=== PATIENT | female | born 1965 | race Caucasian/White ===

== ENCOUNTER 2018-07-02 15:00 | Outpatient (RCR) | payer BC, SELFPAY ==
--- NOTE | 2018-07-02 13:08 | IE_ITS ---
Date: July 02, 2018 Referring: Oliva Figueroa NP [place] Diagnosis: left knee medial compartmental OA SUBJECTIVE: History of Present Illness: The patient reports injuring her knee earlier this summer while camping. She was lifting 4 bags of groceries, attempting to step down one step, pivoted and felt a pop in the knee. This resulted in severe, anterior knee pain. Ended up at the Orthopedic clinic receiving a Synvisc injection. This did offer 75% reduction in pain. She admits she is aware of having degenerative OA, and is likely a candidate for a TKR. 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 She did have a right TKR in February 2017. She is referred today for an evaluation and consideration of accommodative orthotics incorporating a medial compartmental unloading component. The patient admits that the pain increases with standing and/or pivoting. Also, has pain and stiffness when transferring sit to stand after sitting for more than 30 minutes. She has discomfort with the first few steps taken. She does sleep through the night fairly well. Pain Rating: At time of I.E. 2 /10 and at its worst 6/10 (in the past wk.) Current Level of Function: Difficulty performing heavy activities at home, walking a mile and is not able to squat. Social: Lives in a multi level home with her and her high school aged child. She teaches at [employer]. Comorbidities: Cervical spine discectomy 19 yrs ago, gastric bypass 7 yrs ago , thyroidectomy secondary to CA 6 yrs ago, (-) diabetes, (-) HBP Falls in the last year: __x__ No ___Yes - How many? ___ - (if over 2, balance SM needs to be completed) Standardized Measures: LEFS score: __43%__ OBJECTIVE: Posture: The patient is a morbidly obese female with genu valgus left knee. Significant pronation noted bilaterally, right worse than left. 10 to 12 of rearfoot eversion right; 8 left. She does report a history of plantar fascitis of both feet (past 3 to 4 yrs). This was corrected with use of orthotics with arch support. Gait: Non antalgic. Palpation: Pain elicited with palpation over the medial border of the left knee and medial knee joint line on the left. Painfree over the popliteal fossa and lateral knee joint line. ROM: 110 A right; 115 AA. 115 A left with retro patella discomfort. Extension 0 right; 5 hyper extension left. Hip ROM is WFL. Strength: Hip flexion 5/5 bilaterally, hip extension 4/5 bilaterally, hip abduction 4/5 bilaterally, quadriceps 4+/5 bilaterally and she performs a SLR with a 0 lag. Hamstrings 4/5 bilaterally. She is able to heel and toe walk. Joint accessory motion: Mildly decreased patella mobility through all planes on the left. Special Tests: (+) bounce home. (+) thessaly. (-) Apley grind. (-) anterior drawer. (-) posterior sag sign. Treatment: IE: [id number] x1 Patient Education: Fabrication of accommodative orthotics incorporating lateral rearfoot posting on the left to off load the medial compartment. Did incorporate scaphoid pads bilaterally to address her moderate pronation. Am a little reluctant to push aggressive lateral wedge forcing her into further pronation due to her history of plantar fascitis. Direct treatment time: 1 hr. from 3:00 til 4:00 P.M. ASSESSMENT: Patient is a 53-year-old female, referred for PT services with the diagnosis of left knee OA medial compartment. Patient presents with clinical signs and symptoms consistent with this diagnosis, as demonstrated by the following impairment level findings: impaired motor function, muscle performance and ROM associated with localized inflammation and OA of the left knee Impairments are contributing to the following functional limitations: as indicated above Patient is assessed as: __x__ Low 30102 complexity, based on the following: History: (list): See comorbidities and social history. Examination: (list): See above for functional limitations and impairments. Presentation: Stable and uncomplicated Decision-Making: Low complexity ____ Patient requires skilled PT intervention to remediate the above functional limitations to return to: __x__ Return to full functional mobility Her schedule as a teacher will limit her ability to participate in formal P.T., which is why they elected to pursue orthotic fabrication. Will need to keep a close eye on her symptom response to use of orthotics due to her history of plantar fascitis and moderately advanced pronation bilaterally , as we attempt to off load the medial knee joint line with a lateral rearfoot posting on the left. May be a good candidate for an OA off truck loader overhead crane brace if orthotics do not work. STG: __6__ weeks. 1) full day use of orthotics without limitations due to pain 2) independent and compliant with HEP LTG: _6_ weeks. 1) patient independent in self maintenance of symptoms PLAN: [ Patient to be seen 1x per week, for 6 weeks, adjusting frequency of visits per patient symptoms and response to treatment. Treatment to include: Modification of orthotics as needed as well as a ther-ex routine with focus on open kinetic chain strengthening and proximal hip stabilization, calf stretching, quadriceps and hamstring strengthening. The patient is in agreement with this POC, and is to be discharged when the above goals have been met. Her HEP will be progressed by Anirudh Bryson ATC. Thank you for this referral. Please do not hesitate to contact me with any questions or concerns regarding this patient's plan of care.
== END 2018-07-13 23:59 | disposition home or self-care (01) ==
LOC: PT 15:00
PROVIDERS: Referring Provider Nurse Practitioner; Visit Provider Nurse Practitioner
DX: M17.12 Unilateral primary osteoarthritis, left knee (principal)
CPT/HCPCS: 97161

== ENCOUNTER 2019-01-02 09:35 | Outpatient (CLI) | payer BC, SELFPAY ==
--- NOTE | 2019-01-02 16:19 | DI.MAMMO_ITS ---
SYMPTOMS/DIAGNOSIS: SCREENING MAMMOGRAMS: Mammograms were interpreted according to the usual protocol including computer analysis with CAD system, tomosynthesis and C view imaging. Comparison is with the prior examinations. No suspicious masses or microcalcifications are seen. There is no definite evidence of malignancy. IMPRESSION: Negative mammogram. Routine screening is recommended. Breast density B, category 1. SA ASSESSMENT OF FINDINGS: Negative. Category 1. Patient will receive a letter notifying them of these results. BI-RADS category B. There are scattered areas of fibroglandular density.
== END 2019-01-02 09:55 ==
PROVIDERS: Visit Provider Nurse Practitioner Family
DX: Z12.31 Encounter for screening mammogram for malignant neoplasm of breast (principal)
CPT/HCPCS: 77063; 77067

== ENCOUNTER 2019-02-12 02:04 | Outpatient (CLI) | payer BC, SELFPAY ==
[2019-02-12 09:53] LABS: ALT 18 U/L (12-78); AST 17 U/L (15-37); Albumin 3.4 g/dL (3.4-5.0); Alkaline Phosphatase 89 U/L (46-116); Anion Gap 7.9 mmol/L (3-11); BUN 16 mg/dL (7-18); Bilirubin, Total 0.4 mg/dL (0.2-1.0); CO2 31.1 mmol/L (21.0-32.0); Calcium 7.9 mg/dL (8.5-10.1); Chloride 104 mmol/L (98-107); Cholesterol 222 mg/dL (50-200); Glucose 101 mg/dL (70-100); HDL Cholesterol 72 mg/dL (40-60); LDL CHOLESTEROL 129 mg/dL (<100); Potassium 3.9 mmol/L (3.5-5.1); Sodium 143 mmol/L (136-145); TSH (W/Ref FT4) 0.71 uIU/mL (0.358-3.74); Total Protein 6.5 g/dL (6.4-8.2); Triglyceride 148 mg/dL (30-150)
[2019-02-12 10:36] LABS: Iron 47 ug/dL (50-175); Total Iron Binding Capacity 316 ug/dL (250-450); Transferrin Sat 15 % (15-50)
[2019-02-13 10:24] LABS: Transferrin 222 mg/dL (201-352)
== END 2019-02-12 02:24 ==
DX: Z00.00 Encounter for general adult medical examination without abnormal findings (principal); D64.9 Anemia, unspecified; E03.9 Hypothyroidism, unspecified; F32.9 Major depressive disorder, single episode, unspecified; G47.33 Obstructive sleep apnea (adult) (pediatric); D36.9 Benign neoplasm, unspecified site; I10 Essential (primary) hypertension; Z98.84 Bariatric surgery status; E66.9 Obesity, unspecified; G47.00 Insomnia, unspecified
CPT/HCPCS: 36415; 80053; 80061; 83721; 83540; 83550; 84443; 84466

== ENCOUNTER 2019-10-22 20:54 | Emergency (ER) | payer BC, SELFPAY ==
[2019-10-22 20:58] VITALS: BP 158/79; PULSE 98; RESP 22; TEMP 36.6; O2SAT 96
--- NOTE | 2019-10-22 21:03 | ED.GENADUL_ITS ---
Discharge Plan Disposition Patient Disposition: HOME Condition: Good Discharge Details Chief Complaint: Allergic Clinical Impression: Acute urticaria Primary Care Provider: Samanta Flores ED Provider: Wilfrid Hernandez [place] Meds and New Rx's Prescriptions: New hydroxyzine HCl 25 mg tablet 25 mg PO .q6-8H PRN (Reason: itching) Qty: 30 RF: 0 ranitidine HCl 150 mg capsule 150 mg PO BID Qty: 14 RF: 0 prednisone 20 mg tablet 20 mg PO DAILY Qty: 9 RF: 0 Continued melatonin 5 mg capsule 5 mg PO PRN PRNRF: 0 bupropion HCl [Wellbutrin XL] 300 mg tablet extended release 24 hr 300 mg PO QAM Qty: 90 RF: 3 levothyroxine 200 mcg tablet 200 mcg PO DAILY Qty: 90 RF: 3 multivitamin 1 EACH tablet 1 ea PO DAILY RF: 0 iron 18 MG tablet 1 tab PO DAILY RF: 0 cholecalciferol (vitamin D3) [Vitamin D3] 2,000 UNIT tablet 1,000 unit PO DAILY RF: 0 cyanocobalamin (vitamin B-12) [Vitamin B-12] 1,000 MCG tablet 1 tab PO DAILY Qty: 100 RF: 0 C-PAP RF: 0 aspirin 325 mg Tablet 325 mg PO BID RF: 0 acetaminophen 500 mg Tablet 1,000 mg Q6H PRN PRNRF: 0 Discontinued prednisone 10 mg Tablet 20 mg PO DAILY RF: 0 hydromorphone [Dilaudid] 2 mg Tablet 2 mg PO PRN PRNRF: 0 diphenhydramine HCl [Benadryl] 25 mg Capsule 50 mg PO PRN PRNRF: 0 enoxaparin 30 mg/0.3 mL Syringe 30 mg subcut DAILY RF: 0 Discharge Instructions Instructions: Urticaria (ED) Additional Instructions: Please discontinue the Benadryl and Zyrtec for now. Start taking hydroxyzine and ranitidine as directed. Continue on prednisone at higher dose and taper over the weekend. Go to your appointment with orthopedics tomorrow. Make an appointment to see primary care next Monday. Return to ED for difficulty breathing, lip/tongue/throat swelling, vomiting, other concerns or problems. Referrals: Samanta Flores, REPAIR SERVICE DISPATCHER [Primary Care Provider] - Efrain Figueroa [ NON-[facility] STAFF PHYSICIAN] - Discharge Data Discharge Date/Time-TO BE ENTERED AT DEPARTURE: 10/22/19 23:50 Medical Decision Making Patient with urticaria of unknown etiology at this point. Now minimal involvement of the lips but no evidence of oral pharyngeal or airway compromise. Has been ongoing for almost 7 days. Do not suspect anaphylactic reaction. Is on Benadryl, Zyrtec and prednisone. She is on the end of her taper for prednisone. Had discussed with her orthopedist prior to going on prednisone some risk to infection or compromise of her recent knee replacement. I do not think the patient needs epinephrine. Will try a different H1 shakir such as hydroxyzine. Will also start H2 shakir ranitidine. Should have increased dose of prednisone and a little more prolonged taper. This was discussed with coverage for her orthopedist, Dr. Figueroa. Agrees to increasing prednisone dose again for short course. Patient is due to see them tomorrow. I will also have her follow-up with primary care. Return to emergency department if increasing shortness of breath, lip/tongue/throat swelling, other concerns. Patient was watched in the emergency department for couple hours with no progression of swelling. Deemed safe for discharge with follow-up as discussed. HPI General Mode of arrival: ambulatory . Date/Time Provider Initiated Documentation: 10/22/19 21:03 . Limitations to Documentation: no limitations . Information obtained by: patient and RN notes reviewed . HPI Narrative: Patient presents to ED with continued hives that now seem to be affecting her lips. She developed hives approximately a week ago. She is about 2-1/2 weeks status post knee replacement. Thought possibly related to the Lovenox or Dilaudid but she has not been using this for the last few days. She is on prednisone as well as Benadryl and Zyrtec. The hives continue to come and go. At one point earlier in the week she felt some shortness of breath but did not seek medical attention ended okay. Tonight she started to notice some swelling to her lips and became concerned and came in. She denies change in voice, difficulty breathing, throat swelling. She is not having any issue with the knee replacement. She is able to flex and extend and ambulate relatively well. Related Data Home Medications Medication Instructions Recorded Confirmed cholecalciferol (vitamin D3) 1,000 unit PO DAILY tab 04/29/13 10/22/19 [Vitamin D3] iron 1 tab PO DAILY tab 04/29/13 10/22/19 multivitamin 1 ea PO DAILY tab 04/29/13 10/22/19 cyanocobalamin (vitamin B-12) 1 tab PO DAILY #100 tab 12/11/13 10/22/19 [Vitamin B-12] C-Pap 12/06/17 06/14/19 levothyroxine 200 mcg tablet 200 mcg PO DAILY #90 tab-cap 12/12/18 10/22/19 melatonin 5 mg capsule 5 mg PO PRN PRN cap 12/31/18 10/22/19 bupropion HCl 300 mg 24 hr tablet, 300 mg PO QAM #90 tab 05/06/19 10/22/19 extended release acetaminophen 1,000 mg Q6H PRN PRN 10/22/19 10/22/19 aspirin 325 mg PO BID 10/22/19 10/22/19 hydroxyzine HCl 25 mg PO .q6-8H PRN #30 tab 10/22/19 prednisone 20 mg PO DAILY #9 tab 10/22/19 ranitidine HCl 150 mg PO BID #14 cap 10/22/19 Previous Rx's Medication Instructions Recorded levothyroxine 200 mcg tablet 200 mcg PO DAILY #90 tab-cap 12/12/18 bupropion HCl 300 mg 24 hr tablet, 300 mg PO QAM #90 tab 05/06/19 extended release hydroxyzine HCl 25 mg PO .q6-8H PRN #30 tab 10/22/19 prednisone 20 mg PO DAILY #9 tab 10/22/19 ranitidine HCl 150 mg PO BID #14 cap 10/22/19 Allergies Allergy/AdvReac Type Severity Reaction Status Date / Time oxycodone Allergy Mild SKIN RASH Verified 10/22/19 21:02 sertraline AdvReac Intermediate Jittery Verified 10/22/19 21:02 General Stated Complaint: Allergic BRIAN: 2 Review of Systems Narrative: As documented in HPI otherwise negative as below. 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) Gastric Bypass (~2010) HERNIATED DISK REMOVAL (~09/1999) NECK MENISCAL TEAR (~2004) RIGHT KNEE proximal row carpelectomy (10/28/16) THYROIDECTOMY (~2011) Social History Smoking/Tobacco Use Status: Former Tobacco Use Alcohol Intake: never Drug use: Never Substance use type: does not use Do you feel safe at home: Yes Do you feel safe in your relationship?: Yes Female Reproductive History Menstrual Menopause type: natural History History 3 Para 2 Hx # Term Pregnancies Multiple births Hx # Pregnancies Ectopic pregnancies AB induced Hx Number of Living Children AB spontaneous Exam Narrative Exam Narrative: Vitals: Afebrile. Elevated blood pressure otherwise normal vitals and normal room air pulse ox. Const: Obese female in NAD. HEENT: NC/AT. Normal facial exam. Mild lip swelling most noticeable upper lip. Tongue and OP normal. Eyes: Normal conjunctiva and sclera. Neck: Supple. Trachea midline. No stridor. Lungs: Normal respiratory effort. Lungs are clear. Cor: RRR without murmur/gallop. Good radial pulses. Neuro: A+O x 3. No gross motor or sensory deficit. Ext: No C/C/E. Left knee incision clean, dry and intact. Good flexion and extension. No erythema. Skin: Warm and dry with hives present especially involving back and thorax. Course Vital Signs Vital signs: Vital Signs Temperature 97.9 F 10/22/19 20:58 Pulse 98 H 10/22/19 20:58 Respiratory Rate 22 10/22/19 20:58 Blood Pressure 158/79 H 10/22/19 20:58 Pulse Oximetry 96 10/22/19 20:58 Temperature 97.9 F 10/22/19 20:58 Temperature Source Skin 10/22/19 20:58 Pulse 98 H 10/22/19 20:58 Respiratory Rate 22 10/22/19 20:58 Blood Pressure 158/79 H 10/22/19 20:58 Blood Pressure Position Sitting 10/22/19 20:58 Pulse Oximetry 96 10/22/19 20:58 Oxygen Delivery Method Room Air 10/22/19 20:58 Oxygen Flow Rate 0 10/22/19 20:58 Pain Level 6 10/22/19 20:58
[2019-10-22 21:41] VITALS: BP 127/68; PULSE 78; RESP 21; O2SAT 96
[2019-10-22 22:05] VITALS: BP 116/65; PULSE 82; RESP 18; O2SAT 97
[2019-10-22] MEDS: predniSONE 20 MG TAB 40 MG PO (22:05)
[2019-10-22 22:30] VITALS: BP 112/76; PULSE 79; RESP 18; O2SAT 97
[2019-10-22 23:40] VITALS: BP 134/67; PULSE 80; RESP 18; TEMP 36.4; O2SAT 98
[2019-10-22] MEDS: hydrOXYzine PAMOATE 25 MG CAP PO (23:40)
== END 2019-10-22 23:50 | disposition home or self-care (01) ==
PROVIDERS: Emergency Provider Emergency Medicine
DX: L50.0 Allergic urticaria (principal); R60.0 Localized edema
CPT/HCPCS: 99283; J7512

== ENCOUNTER 2020-06-02 01:13 | Outpatient (CLI) | payer BC, SELFPAY ==
--- NOTE | 2020-06-02 15:46 | DI.MAMMO_ITS ---
EXAM: MG MAMMO SCREENING CLINICAL HISTORY: screening,z12.39 TECHNIQUE: Bilateral full field digital CC and MLO mammographic images were obtained with 3D tomosyn thesis and utilizing computer aided detection (CAD). COMPARISON: Available for comparison. FINDINGS: Masses/Architectural Distortion: None seen. Microcalcifications: No suspicious pleomorphic-type are seen. Skin Thickening/Nipple Retraction: None. IMPRESSION: 1. No significant interval change with no specific features of malignancy noted. 2. Unless there is more urgent need, screening mammography is recommended, as per [place] [employer] guidelines. BI-RADS Category 1 - Negative Breast Density - Category B - Scattered areas of fibroglandular density A negative radiographic report should not delay biopsy if a dominant or clinically suspicious mass is present. Up to ten percent of cancers are not identified on mammography. A negative report may reinforce clinical impression. Adenosis and dense breasts may obscure an underlying neoplasm. False positive reports average 6 to 10%. Patient will receive a letter notifying them of these results.
== END 2020-06-02 01:33 ==
DX: Z12.31 Encounter for screening mammogram for malignant neoplasm of breast (principal)
CPT/HCPCS: 77063; 77067

== ENCOUNTER 2020-12-16 03:49 | Outpatient (CLI) | payer BC, SELFPAY ==
[2020-12-16 08:38] LABS: Anion Gap 4.5 mmol/L (3-11); BUN 18 mg/dL (7-18); CO2 32.5 mmol/L (21.0-32.0); CREATININE 0.9 mg/dL (0.55-1.02); Calcium 8.1 mg/dL (8.5-10.1); Calculated LDL 134 mg/dL (<100); Chloride 105 mmol/L (98-107); Cholesterol 239 mg/dL (<200); Glucose 100 mg/dL (74-106); HDL Cholesterol 79 mg/dL (40-60); Potassium 3.7 mmol/L (3.5-5.1); Sodium 142 mmol/L (136-145); TSH 1.06 uIU/mL (0.36-3.74); Triglyceride 130 mg/dL (<150)
[2020-12-16 08:56] LABS: FREE T4 1.21 ng/dL (0.76-1.46)
== END 2020-12-16 03:50 | disposition home or self-care (01) ==
LOC: LBO 03:49
PROVIDERS: PCP Nurse Practitioner Family
DX: E03.9 Hypothyroidism, unspecified (principal)
CPT/HCPCS: 36415; 80048; 80061; 83036; 84439; 84443

== ENCOUNTER 2021-01-18 15:10 | Outpatient (REF) | payer BC, SELFPAY ==
--- NOTE | 2021-01-18 15:00 | PAPFT_PTH ---
PATIENT: Helga Stevens LOC: [facility] U#:[id number] AGE/SX: 55/F ROOM: RE01/18/[address]: JAH Perez : 1965 BED: DIS: 01/18/2021 SPEC #: [id number] RECD: 01/18/21 18:20 STATUS: ISAMAR REKhushbu #: [id number] MILES: 01/18/21 15:[address]: Ct Petersen DEPT: [facility] Cytology RECD BY: Mary Darling ENTERED: 01/18/21 18:20 SP TYPE: PAPFT JAVI DR: JAH Sumner Tissues: 1 - CX/ENDOCX FOR PAP SMEARS Procedures: PAP THIN PREP/UVM Screening HPV DNA PROBE Comments: [id number]
== END 2021-01-18 15:11 | disposition home or self-care (01) ==
LOC: LBN 15:10
PROVIDERS: PCP Nurse Practitioner Family; Visit Provider Nurse Practitioner Family
DX: Z12.4 Encounter for screening for malignant neoplasm of cervix (principal); Z11.51 Encounter for screening for human papillomavirus (HPV)
CPT/HCPCS: 88142; 87624

== ENCOUNTER 2021-06-03 01:49 | Outpatient (CLI) | payer BC, SELFPAY ==
--- NOTE | 2021-06-03 10:00 | DI.MAMMO_ITS ---
Exam(s) MAMMO SCREENING EXAM: MAMMO SCREENING CLINICAL HISTORY: screening. TECHNIQUE: Bilateral full field digital CC and MLO mammographic images were obtained with 3D tomosyn thesis and utilizing computer aided detection (CAD). COMPARISON: Prior mammograms dating back to 2011, the most recent being May 2020. FINDINGS: There are no new spiculated masses nor malignant appearing microcalcification groups. Benign micro and macrocalcifications are again noted in both breasts. There is no significant architectural distortion nor skin thickening-retraction. IMPRESSION: No radiographic evidence of malignancy. BI-RADS Category 1 - Negative Breast Density - Category B - Scattered areas of fibroglandular density Breast density Category C or D implies that the patient has dense breast tissue. Dense breast tissue can make it harder to find cancer on a mammogram. Dense breast tissue is also associated with an incr eased risk of breast cancer. This information about the result of the mammogram report was provided to the patient to raise their awareness. Use this report when you speak with the patient about their risks for breast cancer, which includes their family history. At that time, you may recommend additional screening tests (Ultrasoun d or MRI) as these tests may add significant information. A negative radiographic report should not delay biopsy if a dominant or clinically suspicious mass is present. Up to ten percent of cancers are not identified on mammography. A negative report may reinforce clinical impression. Adenosis and dense breasts may obscure an underlying neoplasm. False positive reports average 6 to 10%. Patient will receive a letter notifying them of these results.
== END 2021-06-03 02:09 ==
PROVIDERS: PCP Nurse Practitioner Family; Visit Provider Nurse Practitioner Family
DX: Z12.31 Encounter for screening mammogram for malignant neoplasm of breast (principal); R92.8 Other abnormal and inconclusive findings on diagnostic imaging of breast
CPT/HCPCS: 77063; 77067

== ENCOUNTER 2021-09-13 02:27 | Outpatient (CLI) | payer BC, SELFPAY ==
[2021-09-13 11:23] LABS: Source Nasal/Nares
[2021-09-13 16:27] LABS: COVID-19 PCR Negative (Negative)
== END 2021-09-13 02:28 | disposition home or self-care (01) ==
LOC: LBO 02:27
PROVIDERS: PCP Nurse Practitioner Family; Visit Provider Surgery
DX: Z20.822 Contact with and (suspected) exposure to COVID-19 (principal)
CPT/HCPCS: 87635

== ENCOUNTER 2021-09-14 07:56 | Day surgery (SDC) | payer BC, SELFPAY ==
[2021-09-14 08:08] VITALS: BP 126/80; PULSE 75; RESP 16; TEMP 36.2; O2SAT 97
[2021-09-14] MEDS: Lactated Ringers 1,000 ML 80 ML IV (08:29)
[2021-09-14 08:31] VITALS: BMI 41.7
--- NOTE | 2021-09-14 08:31 | W.ANESPRE ---
General Info Date of Service Date Performed: 09/14/21 Height: 5 ft 6 in Weight: 117.2 kg Body Mass Index (BMI): 41.7 Surgical Procedure: Operation Date: 09/14/21 09:20 Proposed Procedures Side Surgeon jane Garcia, DO Meds Allergies and Home Medications Allergies Allergy/AdvReac Type Severity Reaction Status Date / Time oxycodone Allergy Mild SKIN RASH Verified 09/14/21 08:11 sertraline AdvReac Intermediate Jittery Verified 09/14/21 08:11 Home Medication Medication Instructions Recorded cholecalciferol (vitamin D3) 1,000 unit PO DAILY tab 04/29/13 [Vitamin D3] iron 1 tab PO DAILY tab 04/29/13 multivitamin 1 ea PO DAILY tab 04/29/13 cyanocobalamin (vitamin B-12) 1 tab PO DAILY #100 tab 12/11/13 [Vitamin B-12] melatonin 5 mg capsule 5 mg PO PRN PRN cap 12/31/18 levothyroxine 200 mcg tablet 200 mcg PO DAILY #90 tab-cap 12/16/20 bupropion HCl 300 mg 24 hr tablet, 300 mg PO QAM #90 tab 02/01/21 extended release hydrochlorothiazide 25 mg tablet 25 mg PO QAM #90 tab 02/01/21 losartan 50 mg tablet 50 mg PO DAILY #90 tab 02/01/21 bisacodyl 5 mg tablet,delayed 5 mg PO ONCE #4 tab 08/12/21 release polyethylene glycol 3350 17 17 g PO ONCE #238 g 08/12/21 gram/dose oral powder Current Visit Medications: Current Medications Generic Name Dose Route Start Last Admin Trade Name Freq PRN Reason Stop Dose Admin Ringer's Solution 1,000 mls @ 80 mls/hr 09/14/21 06:00 IV 10/13/21 23:59 INFUSION TAMIKA IV Miscellaneous Supplies 1 each 09/14/21 06:00 Iv Access IV 10/13/21 23:59 DIRECTED TAMIKA Sodium Chloride 0 ml 09/14/21 06:00 Normal Saline Flush 10 Ml Syr IV 10/13/21 23:59 PRN PRN Sodium Chloride 0 ml 09/14/21 06:00 Normal Saline 10 Ml Vial IJ 10/13/21 23:59 DIRECTED PRN Sterile Water 0 ml 09/14/21 06:00 Water,Injection,Sterile 10 Ml Vial IJ 10/13/21 23:59 DIRECTED PRN PFSH Active Problems Active Problems: Problem Status Onset Code Screening for colon cancer Z12.11 History of thyroid cancer ~2011 Z85.850 Hypothyroidism E03.9 Obstructive sleep apnea syndrome G47.33 Essential hypertension I10 Hyperlipidemia E78.5 Depressive disorder F32.9 Obesity E66.9 Medical History Medical History Depressive disorder Essential hypertension Hyperlipidemia Hypothyroidism Secondary to thyroidectomy for thyroid CA Obesity Obstructive sleep apnea syndrome CPAP 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 Thyroid goiter Tubular adenoma of colon On 2015 colonoscopy Surgical History Surgical History H/O total thyroidectomy (06/18/12) 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/04/11) Hx of bone marrow donation S/P cervical discectomy Status post total left knee replacement (11/21/19) Status post total right knee replacement (02/14/17) Tobacco Smoking/Tobacco Use Status: Former Tobacco Use Tobacco: How many years used: 10 Passive smoking exposure: Yes Alcohol Alcohol Intake: current Alcohol intake frequency: a few times a week Alcohol type: wine Substance Use Substance use: Never Substance use type: does not use Prental History History 3 Para 2 Hx # Term Pregnancies Multiple births Hx # Pregnancies Ectopic pregnancies AB induced Hx Number of Living Children 2 AB spontaneous 1 Vital Signs and Lab Results Vital Signs Most Recent Vital Signs in EMR: Most Recent Vital Signs Temp Pulse Resp BP Pulse Ox 36.2 C L 75 16 126/80 97 09/14/21 08:08 09/14/21 08:08 09/14/21 08:08 09/14/21 08:08 09/14/21 08:08 Lab Results Blood Type / Crossmatch: No Data to Display Complete Blood Count: No Data to Display Complete Metabolic Panel: No Data to Display Liver Function Panel: No Data to Display Coagulation Panel: No Data to Display Cardiac Panel: No Data to Display Arterial Blood Gas: No Data to Display Venous Blood Gas: No Data to Display Pancreas Panel: No Data to Display Thyroid Panel: No Data to Display Infectious Disease: Coronavirus (COVID-19)(PCR) Negative (Negative) 09/13/21 09:00 09/13/21 Coronavirus 2019 Source Nasal/Nares 09/13/21 09:00 09/13/21 Blood Cultures: No Data to Display Toxicology Panel: No Data to Display Anesthesia Assessment and Plan Anesthesia History Personal History: No History of Anesthesia Complications Family History: No Family History of Anesthesia Complications Exercise Tolerance Exercise Tolerance: Metabolic Equivalents>4 Pertinent Negatives Pertinent Negatives: No Symptoms of GERD, No Major Cardiovascular Symptoms or Complaints, No Major Pulmonary Symptoms or Complaints and No History of CVA/TIA Cardiac & Pulmonary Exam Cardiac Exam: Normal S1/S2 Heart Sounds Pulmonary Exam: Clear Bilateral Breath Sounds Airway Exam Known Difficult Airway: No Mallampati Class: 2 Mouth Opening: Normal (> 3cm) Thyromental Distance: Greater than 3 cm Neck Range of Motion: Full ROM Neck Circumference: Normal Teeth Condition: Normal Dentition ASA Classification ASA Score: ASA 3 Emergency Case?: No NPO Status NPO Status: NPO Clears >2 hours, Solids >8 hours Anesthesia Plan Resuscitation Status: Full Code Anesthesia Technique: General Anesthesia Airway Planned: Natural Airway Monitors Used: Standard Monitors
--- NOTE | 2021-09-14 08:34 | HPE_ITS ---
Date of service: 09/14/21 Time of Service: 08:35 Assessment and Plan Assessment and plan (1) Tubular adenoma of colon: Status: Inactive Assessment and plan: Plan:Colonscopy w/ MAC The patient will be scheduled by my office. The pt understands that they need to do a bowel prep and the importance of hydration during this. The patient understands there is a theoretical risk of renal failure. For healthy patients we use Gatorade/Miralax Prep. For anyone with renal concerns- GoLytely will be used. Plavix and coumadin will need to be held except in unusual circumstances. Patients in A. Fib do not need to be bridged with Lovenox or on CVA prophylaxis. A baby ASA can be continued but full dose ASA needs to be stopped for 10 days prior to the procedure. A complete H & P is required within 30 days of the procedure. MAC is used for the colonoscopy. Colonoscopy does not require antibiotics prophylaxis. Thank you for allowing me to participate in the care of this Patient. A copy of the Endoscopy report will be forwarded to your office. Informed consent is obtained for the procedural (explained in simple layman's terms that the pt and/or family could understand) explaining risks vs benefits and alternatives to the procedure and consequences if we do not do the procedure and need/rational for the procedure. Risks include but are not limited to: bleeding, infection, perforation of colon. This would necessitate emergency surgery to repair the damage w/ possible ostomy; and other associated complications w/ the required surgery. Also complications of anesthesia including aspiration, NV/CVA/. I discussed with the patient would they could expect during the procedure, post procedure and recovery time and risks. The patient understands that they need to have a ride home after the procedure. The patient was given all this information in writing and expressed understanding. to your office. If there are any questions or concerns please feel free to contact our office. (2) Screening for colon cancer: Status: Acute (3) History of thyroid cancer: Status: Chronic (4) Hypothyroidism: Status: Chronic (5) Obstructive sleep apnea syndrome: Status: Chronic (6) Essential hypertension: Status: Chronic (7) Hyperlipidemia: Status: Chronic (8) Depressive disorder: Status: Chronic (9) Obesity: Status: Chronic History of Present Illness Consults Consult date: 09/14/21 Narrative: y/o female with history of hypothyroidism, RICHARD, HTN and depressive disorder presents for colonoscopy screening pre-op. Her last screening was in 2016, which was remarkable for tubular adenoma. She reports a family history of colon cancer in her paternal GF. She denies any changes in bowel habits including bloody or black tarry stools, abdominal pain, diarrhea or constipation. She denies constitutional symptoms. Denies use of marijuana or any other recreational or illegal drugs. She denies chest pain, palpitations, dyspnea or dyspnea with exertion. She denies prior history or family history of adverse reactions or complications with anesthesia. The patient denies any history of stroke, NV, seizures, bleedi ng or clotting disorders. She reports having implanted metal in bilateral knees and cervical spine. The patient is here for Colonoscopy pre-op. Her last screening was in 2015 and was remarkable for tubular adenoma. She reports a family history of colon cancer in her paternal GF. She has not had any bowel habit changes. rocedure: After informed consent was obtained, the patient was taken to the Endoscopy Suite, placed in the left decubitus position. Monitors were applied and a time- out was done. The patient was the given Propofol and once sedated and comfortable the colonoscope was introduced and retroflexed. No internal hemorrhoids were noted. The scope was straightened and advanced to the cecum without difficulty. The terminal ileum and appendiceal orifice were identified. The scope was then slowly retracted all the way back into the descending colon where a small polyp was identified and removed with forceps. The scope was then retracted into the rectum. Diverticulosis of the descending and sigmoid colon was also identified. The scope was removed and the patient was woken up and taken back to [facility] in stable condition. 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 Daughter No problems noted. Maternal Grandfather Brain tumor Maternal Grandmother Hyperlipidemia Hypertension Heart disease Stroke Paternal Grandfather Colon cancer Heart disease Paternal Grandmother Diabetes Hypertension Social History Smoking/Tobacco Use Status: Former Tobacco Use Quit Date: 11/13/91 Tobacco: How many years used: 10 Smoking risk assessment performed?: Yes Alcohol Intake: current Alcohol Intake frequency: a few times a week Alcohol type: wine Drug use: Never Substance use type: does not use Caregiver/Support person: No Household members: spouse and children Housing: house Do you need help understanding health information?: Never Pets and animals: Yes Pets and animals: cat(s) and dog(s) Sexually active: Yes Do you think of yourself as: straight/heterosexual Current gender identity: female What is your relationship status?: How often do you talk on the phone with friends or family?: decline to answer How often do you get together with friends or relatives?: decline to answer How often do you attend roman catholic or bahai services?: decline to answer Do you belong to any clubs or organized social groups?: decline to answer Panel score (0-1 are the most socially isolated patients): 1 What type of physical activity do you participate in: none Frequency: does not exercise Jillian/[employer] Special jillian needs: No Seatbelt use: always Drive intox or ride w/intox route driver: No Do you feel safe at home: Yes Do you feel safe in your relationship?: Yes Female Reproductive History Menstrual Menopause type: natural History History 3 Para 2 Hx # Term Pregnancies Multiple births Hx # Pregnancies Ectopic pregnancies AB induced Hx Number of Living Children 2 AB spontaneous 1 Meds Allergies and Home Medications Allergies Allergy/AdvReac Type Severity Reaction Status Date / Time oxycodone Allergy Mild SKIN RASH Verified 09/14/21 08:11 sertraline AdvReac Intermediate Jittery Verified 09/14/21 08:11 Home Medications Medication Instructions Recorded Confirmed Type cholecalciferol (vitamin D3) 1,000 unit PO DAILY tab 04/29/13 09/14/21 History [Vitamin D3] iron 1 tab PO DAILY tab 04/29/13 09/14/21 History multivitamin 1 ea PO DAILY tab 04/29/13 09/13/21 History cyanocobalamin (vitamin B-12) 1 tab PO DAILY #100 tab 12/11/13 09/14/21 History [Vitamin B-12] melatonin 5 mg capsule 5 mg PO PRN PRN cap 12/31/18 09/13/21 History levothyroxine 200 mcg tablet 200 mcg PO DAILY #90 tab-cap 12/16/20 09/14/21 Rx bupropion HCl 300 mg 24 hr tablet, 300 mg PO QAM #90 tab 02/01/21 09/14/21 Rx extended release hydrochlorothiazide 25 mg tablet 25 mg PO QAM #90 tab 02/01/21 09/14/21 Rx losartan 50 mg tablet 50 mg PO DAILY #90 tab 02/01/21 09/14/21 Rx bisacodyl 5 mg tablet,delayed 5 mg PO ONCE #4 tab 08/12/21 09/14/21 Rx release polyethylene glycol 3350 17 17 g PO ONCE #238 g 08/12/21 09/14/21 Rx gram/dose oral powder Exam Narrative Exam Narrative: PHYSICAL EXAM GENERAL APPEARANCE: Alert, healthy appearance, oriented, in no acute distress HYDRATION: Well hydrated HEAD, EYES, EARS, NECK, and Throat: Head is normocephalic, pupils equal, round, reactive to light and accommodation, ocular movement intact, sclera clear and no jaundice. Dentition intact. NECK: Supple, no lymphadenopathy, post Sx changes noted LUNGS: normal respiration, clear to auscultation HEART: Regular rate and rhythm, normal heart sounds, EXTREMITY: No edema or cyanosis, ABDOMEN: soft and non-tender today NEURO: CN: Intact. Results Last Vital Signs Temp 36.2 C L 09/14/21 08:08 Pulse 75 09/14/21 08:08 Resp 16 09/14/21 08:08 BP 126/80 09/14/21 08:08 Pulse Ox 97 09/14/21 08:08
--- NOTE | 2021-09-14 09:18 | BOWEL_PTH ---
PATIENT: Helga Stevens LOC: [facility] U#:[id number] AGE/SX: 56/F ROOM: RE09/14/[address]: Geena Garcia : 1965 BED: DIS: 09/14/2021 SPEC #: [id number] RECD: 09/14/21 12:44 STATUS: IASMAR REQ #: [id number] MILES: 09/14/21 09:[address]: Geena Garcia DEPT: Surgical Specimen RECD BY: Mary Darling ENTERED: 09/14/21 12:45 SP TYPE: Bowel OTHR DR: Radha Salazar, JAH Tissues: 1 - BIOPSY BOWEL Procedures: GROSS AND MICRO LEVEL 4 Comments: [id number]
[2021-09-14 09:30] VITALS: BP 105/79; PULSE 68; RESP 16; TEMP 36.4; O2SAT 96
--- NOTE | 2021-09-14 09:35 | W.COLOREPORT ---
Colonoscopy Report Date of procedure: 09/14/21 Pre-op diagnosis general: Hx of polyps and family hx of CRC Post-op diagnosis procedure note: other (ext hemorrhoids/moderate diverticul/polyp at 40cm) Procedure: -hot polypcetomy snare Surgeon: Geena Garcia Anesthesia Type: General:No Airway Estimated blood loss (mL): 1 Pathology: other Complications: None Disposition: same day Prep: Miralax/Dulcolax Retraction Time: 12 Procedure Description: After informed consent was obtained the patient was taken to the procedure room and placed in a left decubitous position. Monitors were applied and a time out was done. The patients name, date of , procedure, allergies to medications and metal in their body was reviewed. The patient was then sedated. Once sedated and comfortable a rectal exam was done. External exam: external heorrhois. Internal exam revealed a normal sphincter tone and no palpable masses. . The scope was then introduced and retrofelexed. internal hemorrhoids tags were identified. The scope was then advanced to the cecum w/out difficulty. The TI and appendiceal orifice were identified. The colon is very torteous. The prep was adequate. The scope was then slowly retracted over 12 minutes back into the rectum. She has moderate diverticula confined to the sigmoid colon. There is no signs of active bleeding or infection. She has a adenomatous polyp at 40 cm that is on a long stalk. This is removed with a hot polypectomy snare. A clip was applied. No bleeding is noted. The scope was removed and the patient was woken up and taken back to Same day surgery in stable condition. The patient tolerated the procedure well and there were no immediate complications. Follow up: The patient should follow up in 5 years unless they develop changes in bowel habits or other new gastrointestinal complaints.
--- NOTE | 2021-09-14 09:39 | PDOC.DSDIS_ITS ---
Discharge Plan Disposition Patient Disposition: HOME Condition: Good Discharge Details Reason For Visit: colon scope Attending Provider: Geena Garcia Primary Care Provider: Radha Salazar Home Meds and New Rx's Prescriptions: Continued melatonin 5 mg capsule 5 mg PO PRN PRNRF: 0 multivitamin 1 EACH tablet 1 ea PO DAILY RF: 0 iron 18 MG tablet 1 tab PO DAILY RF: 0 cholecalciferol (vitamin D3) [Vitamin D3] 2,000 UNIT tablet 1,000 unit PO DAILY RF: 0 cyanocobalamin (vitamin B-12) [Vitamin B-12] 1,000 MCG tablet 1 tab PO DAILY Qty: 100 RF: 0 levothyroxine 200 mcg tablet 200 mcg PO DAILY Qty: 90 RF: 4 bupropion HCl [Wellbutrin XL] 300 mg tablet extended release 24 hr 300 mg PO QAM Qty: 90 RF: 4 hydrochlorothiazide 25 mg tablet 25 mg PO QAM Qty: 90 RF: 4 losartan 50 mg tablet 50 mg PO DAILY Qty: 90 RF: 4 Discontinued polyethylene glycol 3350 17 gram/dose powder 17 g PO ONCE Qty: 238 RF: 0 bisacodyl [Dulcolax (bisacodyl)] 5 mg tablet,delayed release (DR/EC) 5 mg PO ONCE Qty: 4 RF: 0 Discharge Instructions Additional Instructions: [facility] Colonoscopy Post- Op Instructions Instructions for Everyone who is given Anesthesia: For your safety, please do the following for the next twenty-four (24) hours: *Do Not operate a motor vehicle (car, truck, motorcycle, etc.) *Do Not drink alcoholic beverages or use any recreational drugs for the first 24 hours or while taking pain medications. The medications in your body may have a reaction that can be dangerous. *Do Not make any important decisions or sign any important papers. Findings: diverticula polyps Follow up: repeat in 5 yrs time My office will send a letter in 2 to 3 weeks time detailing what type of polyp it was. 1. No lifting over 20 pounds or strenuous activity for the first 24 hours after your procedure. After 24 hours there are no restrictions on your activity but you may feel fatigued for a few days. 2. After you arrive home you may have a light meal and return to your normal diet as you can tolerate it without feeling sick to your stomach. 3. You may have a bloated, gaseous feeling in your belly (abdomen) after a colonoscopy. Passing gas and belching will help. Walking or lying down on your left side with your knees flexed may relieve the discomfort. Call the office at [phone] (Office) or [phone] (Hospital) right away if you notice any of the following: a.Vomiting of blood or ?coffee ground stools?. b.Rectal bleeding 1Tbsp, blood clots or continuous bleeding. c.Severe belly (abdominal) pain. d.A hard distended belly (abdomen) and an inability to pass gas. 4. Please don?t expect to have a normal BM (bowel movement) for 2-3 days after your procedure. 5. If there are questions regarding the findings of your procedure, please contact your doctor 6. If you are unable to contact your doctor with a problem, contact the hospital at [phone]. 7. Continue all your regular medications unless directed otherwise. I understand the above instructions and have no questions. Signature of Patient or Adult Escort Name of Responsible Adult Escort Signature of Nurse Date/Time Activity:: see above Diet:: see above Discharge Orders Discharge Orders: Discharge Order (Routine); Ordered 09/13/21 Ordered By: Geena Garcia DS: Diagnosis Discharge Diagnosis (1) Tubular adenoma of colon: Status: Inactive (2) Screening for colon cancer: Status: Acute (3) History of thyroid cancer: Status: Chronic (4) Hypothyroidism: Status: Chronic (5) Obstructive sleep apnea syndrome: Status: Chronic (6) Essential hypertension: Status: Chronic (7) Hyperlipidemia: Status: Chronic (8) Depressive disorder: Status: Chronic (9) Obesity: Status: Chronic
[2021-09-14 10:02] VITALS: BP 127/81; PULSE 67; RESP 16; TEMP 36.3; O2SAT 99
--- NOTE | 2021-09-14 10:24 | W.ANESPOSTOP ---
Postoperative Evaluation Date, Time and Location Date Performed: 09/14/21 Time Performed: 09:50 Patient Location: Day Surgery Unit Vital Signs Most Recent Imported Vital Signs: Most Recent Vital Signs Temp Pulse Resp BP Pulse Ox 36.3 C L 67 16 127/81 99 09/14/21 10:02 09/14/21 10:02 09/14/21 10:02 09/14/21 10:02 09/14/21 10:02 Pain Score Most Recent Pain Score: Most Recent Pain Score Pain Level 0 09/14/21 10:02 Assessment Mental Status: Awake (Alert & Oriented to Patient Baseline) Airway and Respiratory Function: Patent airway with normal (patient baseline) respiratory exam Cardiovascular Function: Hemodynamically Stable Hydration Status: Adequately Hydrated Nausea & Vomiting: No Nausea or Vomiting Pain: Pt. Denies Any Pain Peripheral Nerve Block: Patient did not receive a nerve block
== END 2021-09-14 10:28 | disposition home or self-care (01) ==
PROVIDERS: PCP Nurse Practitioner Family; Visit Provider Surgery
PROC: 0DJD8ZZ Inspection of Lower Intestinal Tract, Via Natural or Artificial Opening Endoscopic (ICD-10-PCS; CPT 45378; principal; 2021-09-14 09:15)
DX: Z12.11 Encounter for screening for malignant neoplasm of colon (principal); K63.5 Polyp of colon; Z86.010 Personal history of colon polyps; Z85.850 Personal history of malignant neoplasm of thyroid; G47.33 Obstructive sleep apnea (adult) (pediatric); F32.A Depression, unspecified; E66.9 Obesity, unspecified; Z68.41 Body mass index [BMI] 40.0-44.9, adult; I10 Essential (primary) hypertension; E89.0 Postprocedural hypothyroidism; K57.30 Diverticulosis of large intestine without perforation or abscess without bleeding; K64.4 Residual hemorrhoidal skin tags
CPT/HCPCS: 45385; 88305; J2001

== ENCOUNTER 2022-01-28 01:48 | Outpatient (CLI) | payer BC, SELFPAY ==
[2022-01-28 17:23] LABS: Anion Gap 9.1 mmol/L (3-11); BUN 19 mg/dL (7-18); CO2 28.9 mmol/L (21.0-32.0); CREATININE 0.8 mg/dL (0.55-1.02); Calcium 7.7 mg/dL (8.5-10.1); Chloride 104 mmol/L (98-107); FREE T4 0.98 ng/dL (0.76-1.46); Glucose 95 mg/dL (74-106); Potassium 3.8 mmol/L (3.5-5.1); Sodium 142 mmol/L (136-145); TSH 0.56 uIU/mL (0.36-3.74)
== END 2022-01-28 01:49 | disposition home or self-care (01) ==
LOC: LBO 01:48
PROVIDERS: PCP Nurse Practitioner Family; Visit Provider Nurse Practitioner Family
DX: E03.9 Hypothyroidism, unspecified (principal); E83.51 Hypocalcemia
CPT/HCPCS: 36415; 80048; 84439; 84443

== ENCOUNTER 2022-05-20 01:55 | Outpatient (CLI) | payer BC, SELFPAY ==
[2022-05-20 13:20] LABS: ALT 29 U/L (14-59); AST 24 U/L (15-37); Albumin 3.7 g/dL (3.4-5.0); Alkaline Phosphatase 91 U/L (46-116); Bilirubin, Direct 0.1 mg/dL (0.0-0.2); Bilirubin, Total 0.4 mg/dL (0.2-1.0); Total Protein 7.3 g/dL (6.4-8.2)
[2022-05-23 10:20] LABS: Parathyroid Hormone,Intact 25 pg/mL (19-88)
== END 2022-05-20 01:56 | disposition home or self-care (01) ==
LOC: LOS 01:56
PROVIDERS: PCP Nurse Practitioner Family; Visit Provider Nurse Practitioner Family
DX: E03.9 Hypothyroidism, unspecified; E83.51 Hypocalcemia
CPT/HCPCS: 36415; 80076; 82306; 83970

== ENCOUNTER 2022-08-10 15:59 | Emergency (ER) | payer OTHER, SELFPAY ==
[2022-08-10 16:10] VITALS: BP 152/88; PULSE 92; RESP 19; TEMP 36.8; O2SAT 98
--- NOTE | 2022-08-10 16:15 | DI.RAD_ITS ---
Exam(s) XR ELBOW LT COMPLETE EXAM: XR ELBOW LT COMPLETE CLINICAL HISTORY: pain post fall. TECHNIQUE: 2D digital imaging was performed of the left elbow. Four images were obtained. AP, late ral and oblique views were obtained. COMPARISON: No exams were available for comparison FINDINGS: BONES: There is an acute nondisplaced fracture of the lateral and anterior aspect of the radial head. No bony destructive lesion is seen. JOINTS: The elbow is normally aligned. Joint effusion is present. SOFT TISSUE: Normal. IMPRESSION: Nondisplaced radial head fracture. DATA REPOSITORY: RADIATION DOSE DELIVERED:
--- NOTE | 2022-08-10 17:24 | DI.VRAD_ITS ---
PROCEDURE INFORMATION: Exam: XR Left Elbow Exam date and time: 08/10/2022 5:01 PM Age: 57 years old Clinical indication: Other: Pain post fall TECHNIQUE: Imaging protocol: Radiologic exam of the Left elbow. Views: 3 or more views. COMPARISON: No relevant prior studies available. FINDINGS: Bones/joints: Radial head fracture best appreciated on the lateral film. No dislocation. Moderate joint effusion Soft tissues: Unremarkable IMPRESSION: Radial head fracture without dislocation. Moderate joint effusion Dictated and Authenticated by: Gomez Recinos MD. Ordering:ACOSTA Hernandez MD
--- NOTE | 2022-08-10 17:48 | W.ED.GENAD ---
Discharge Plan Disposition Patient Disposition: HOME Condition: Stable Discharge Details Clinical Impression: Elbow fracture, left Primary Care Provider: Radha Salazar ED Provider: Mary Smith Home Meds and New Rx's Prescriptions: Continued melatonin 5 mg capsule 5 mg PO PRN PRN multivitamin 1 EACH tablet 1 ea PO DAILY iron 18 MG tablet 1 tab PO DAILY Rx Instructions: DOSE UNREPORTED. cholecalciferol (vitamin D3) [Vitamin D3] 2,000 UNIT tablet 1,000 unit PO DAILY cyanocobalamin (vitamin B-12) [Vitamin B-12] 1,000 MCG tablet 1 tab PO DAILY Qty: 100 Rx Instructions: DOSE UNREPORTED. losartan 50 mg tablet 50 mg PO DAILY Qty: 90 4RF hydrochlorothiazide 25 mg tablet 25 mg PO QAM Qty: 90 4RF bupropion HCl [Wellbutrin XL] 300 mg tablet extended release 24 hr 300 mg PO QAM Qty: 90 4RF levothyroxine 200 mcg tablet 200 mcg PO DAILY Qty: 90 4RF Discharge Instructions Additional Instructions: take ibuprofen 400-600 once a day as needed for pain tylenol 650 mg every 4-6 hours as needed for pain you may take the dilaudid tonight with ibuprofen so you may sleep keep splint dry return with new or worsening complaints follow-up with orthopedics tomorrow Stand Alone Forms: Work Release Referrals: Gray Hawk MD [ [facility] STAFF PHYSICIAN] - Discharge Data Discharge Date/Time-TO BE ENTERED AT DEPARTURE: 08/10/22 18:33 Medical Decision Making placed in Posterior and given sling Given small amount of opiate analgesia with risk of addiction reviewed Referred to orthopedics for radial head fracture Remains neurovascularly intact pre and post splint placement Return precautions discussed and patient discussed understanding Medical Records Medical records reviewed: Yes I reviewed the patient's medical records. Lab Data Lab results reviewed: Yes I reviewed the patient's lab results. HPI General Date/Time Provider Initiated Documentation: 08/10/22 16:21. HPI Narrative: This 57-year-old female presents status post fall. This was a mechanical fall and she injured her left elbow. She denies any additional significant injuries. Pain is exacerbated with movement of her left elbow. Specifically denies head injury or neck pain. Denies any strength or sensation change Related Data Home Medications Medication Instructions Recorded Confirmed cholecalciferol (vitamin D3) 50 1,000 unit PO DAILY 04/29/13 11/18/21 mcg (2,000 unit) tablet (Vitamin D3) iron 18 mg tablet 1 tab PO DAILY 04/29/13 11/18/21 multivitamin 1 ea PO DAILY 04/29/13 11/18/21 cyanocobalamin (vitamin B-12) 1 tab PO DAILY #100 tabs 12/11/13 11/18/21 1,000 mcg tablet (Vitamin B-12) melatonin 5 mg capsule 5 mg PO PRN PRN 12/31/18 11/18/21 bupropion HCl 300 mg 24 hr tablet, 300 mg PO QAM #90 tabs 01/17/22 extended release (Wellbutrin XL) hydrochlorothiazide 25 mg tablet 25 mg PO QAM #90 tabs 01/17/22 losartan 50 mg tablet 50 mg PO DAILY #90 tabs 01/17/22 levothyroxine 200 mcg tablet 200 mcg PO DAILY #90 tab-caps 02/02/22 Previous Rx's Medication Instructions Recorded bupropion HCl 300 mg 24 hr tablet, 300 mg PO QAM #90 tabs 01/17/22 extended release (Wellbutrin XL) hydrochlorothiazide 25 mg tablet 25 mg PO QAM #90 tabs 01/17/22 losartan 50 mg tablet 50 mg PO DAILY #90 tabs 01/17/22 levothyroxine 200 mcg tablet 200 mcg PO DAILY #90 tab-caps 02/02/22 Allergies Allergy/AdvReac Type Severity Reaction Status Date / Time oxycodone Allergy Mild SKIN RASH Verified 11/18/21 07:43 sertraline AdvReac Intermediate Jittery Verified 11/18/21 07:43 General Stated Complaint: Orthopedic BRIAN: 4 Review of Systems All systems reviewed & are unremarkable except as noted in HPI and below PFSH All Active Problems (Updated 08/10/22 @ 18:06 by IDA Anderson) Elbow fracture, left (Acute) History of thyroid cancer (Chronic ~2011) Papillary thyroid CA s/p total thyroidectomy Hypothyroidism (Chronic) Secondary to thyroidectomy for thyroid CA Obstructive sleep apnea syndrome (Chronic) CPAP Essential hypertension (Chronic) Hyperlipidemia (Chronic) Hypocalcemia (Acute) Depressive disorder (Chronic) Obesity (Chronic) Medical History 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 Thyroid goiter Surgical History H/O total thyroidectomy (06/18/12) History of colonoscopy with polypectomy (09/14/21) 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 Daughter No problems noted. Maternal Grandfather Brain tumor Maternal Grandmother Hyperlipidemia Hypertension Heart disease Stroke Paternal Grandfather Colon cancer Heart disease Paternal Grandmother Diabetes Hypertension Social History Smoking/Tobacco Use Status: Former Tobacco Use Quit Date: 11/13/91 Tobacco: How many years used: 10 Smoking risk assessment performed?: Yes Alcohol Intake: current Alcohol Intake frequency: a few times a week Alcohol type: wine Drug use: Never Substance use type: does not use Caregiver/Support person: No Household members: spouse and children Housing: house Do you need help understanding health information?: Never Pets and animals: Yes Pets and animals: cat(s) and dog(s) Sexually active: Yes Do you think of yourself as: straight/heterosexual Current gender identity: female What is your relationship status?: How often do you talk on the phone with friends or family?: decline to answer How often do you get together with friends or relatives?: decline to answer How often do you attend mu-ism or christianity services?: decline to answer Do you belong to any clubs or organized social groups?: decline to answer Panel score (0-1 are the most socially isolated patients): 1 What type of physical activity do you participate in: none Frequency: does not exercise Jillian/Judaism: Sabianist Special jillian needs: No Seatbelt use: always Drive intox or ride w/intox driver merchandiser: No Do you feel safe at home: Yes Do you feel safe in your relationship?: Yes Female Reproductive History Menstrual Menopause type: natural History History 3 Para 2 Hx # Term Pregnancies Multiple births Hx # Pregnancies Ectopic pregnancies AB induced Hx Number of Living Children 2 AB spontaneous 1 Exam Const General: cooperative, comfortable and no acute distress HENMT Head: normal to inspection Eyes Pupils: PERRL Neck Other: no midline tenderness Resp Effort & Inspection: normal respiratory effort Auscultation: clear to auscultation bilaterally Cardio Rate: regular rate Rhythm: regular rhythm GI Inspection: normal to inspection Neuro General: patient alert and patient oriented x3 Other: gcs 15 Extrem Other: No left shoulder or left wrist tenderness, decreased range of motion and tenderness to left lateral elbow Neurovascularly intact Course Vital Signs Vital signs: Vital Signs Temperature 36.8 C 08/10/22 16:10 Pulse 92 H 08/10/22 16:10 Respiratory Rate 19 08/10/22 16:10 Blood Pressure 152/88 H 08/10/22 16:10 Pulse Oximetry 98 08/10/22 16:10 Temperature 36.8 C 08/10/22 16:10 Temperature Source Tympanic 08/10/22 16:10 Pulse 92 H 08/10/22 16:10 Respiratory Rate 19 08/10/22 16:10 Respiratory Effort 08/10/22 16:12 Blood Pressure 152/88 H 08/10/22 16:10 Blood Pressure Position Supine 08/10/22 16:10 Pulse Oximetry 98 08/10/22 16:10 Oxygen Delivery Method Room Air 08/10/22 16:10 Oxygen Flow Rate 0 08/10/22 16:10 Pain Level 7 08/10/22 16:10 Procedures Orthopedic Splinting/Casting Injury #1: Side: left Upper Extremity Injury Location: elbow Upper Extremity Immobilizer: sling/shoulder immobilizer and posterior splint Additional Comments: neruovascular intact pre and post procedure
[2022-08-10] MEDS: Ibuprofen 600 MG TAB PO (18:31)
[2022-08-10] MEDS: HYDROmorphone 2 MG TAB PO (18:31)
== END 2022-08-10 18:33 | disposition home or self-care (01) ==
PROVIDERS: Emergency Provider Physician Assistant; PCP Nurse Practitioner Family
DX: S52.125A Nondisplaced fracture of head of left radius, initial encounter for closed fracture (principal); W19.XXXA Unspecified fall, initial encounter; Z87.891 Personal history of nicotine dependence
CPT/HCPCS: 29105; 99283; 73080; 99284

== ENCOUNTER 2022-08-16 13:21 | Outpatient (CLI) | payer OTHER, SELFPAY ==
--- NOTE | 2022-08-16 11:15 | DI.RAD_ITS ---
Exam(s) XR ELBOW LT COMPLETE EXAM: XR ELBOW LT COMPLETE CLINICAL HISTORY: LEFT ELBOW FX F/U. TECHNIQUE: 2D digital imaging was performed. COMPARISON: Compared to prior x-rays 08/10/2022 FINDINGS: 3 views Previously described radial head fractures no longer seen-healed. No joint effusion. No acute fract ures. Epicondyles appear unremarkable. No joint space narrowing. No osseous lesions. IMPRESSION: As above DATA REPOSITORY: RADIATION DOSE DELIVERED:
== END 2022-08-16 13:22 | disposition home or self-care (01) ==
LOC: DIORS 13:22
PROVIDERS: PCP Nurse Practitioner Family; Referring Provider Nurse Practitioner Family; Visit Provider Student in an Organized Health Care Education/Training Program
DX: S52.122D Displaced fracture of head of left radius, subsequent encounter for closed fracture with routine healing (principal); X58.XXXD Exposure to other specified factors, subsequent encounter
CPT/HCPCS: 73080

== ENCOUNTER → 2022-09-15 02:29 | Outpatient (CLI) | payer BC, SELFPAY ==
--- NOTE | 2022-09-15 15:50 | DI.MAMMO_ITS ---
Exam(s) MAMMO SCREENING EXAM: MAMMO SCREENING CLINICAL HISTORY: screening,Z12.39 TECHNIQUE: Mammograms were interpreted according to the usual protocol including computer analysis w [employer] CAD system, tomosynthesis and C-view imaging. COMPARISON: FINDINGS: The breasts are of moderate density with fairly symmetrical distribution of fibroglandular tissue. N o dominant mass or clumped microcalcification is identified in either breast. The current examinatio n is compared with previous examinations including May 2021 and there has been no gross interval julieta nge in appearance in comparison with the prior studies. IMPRESSION: No specific evidence of malignancy at this time. Routine screening examinations are suggested at yea rly intervals in this age group according to the ACS ACR guidelines. BI-RADS Category 1 - Negative Breast Density - Category B - Scattered areas of fibroglandular density
== END ==
PROVIDERS: PCP Nurse Practitioner Family; Visit Provider Nurse Practitioner Family
DX: Z12.31 Encounter for screening mammogram for malignant neoplasm of breast (principal)
CPT/HCPCS: 77063; 77067

== ENCOUNTER 2022-09-20 15:01 | Outpatient (CLI) | payer BC, SELFPAY ==
--- NOTE | 2022-09-20 14:15 | DI.RAD_ITS ---
Exam(s) XR ELBOW LT LIMITED EXAM: XR ELBOW LT LIMITED CLINICAL HISTORY: elbow pian. TECHNIQUE: 2D digital imaging was performed of the left elbow. Two images were obtained. AP and la teral views were obtained. COMPARISON: CR,XR XR ELBOW LT COMPLETE from 08/10/2022 CR XR ELBOW LT COMPLETE from 08/16/2022 FINDINGS: BONES: There is callus formation about the radial head fracture. No new fracture is seen. No bony d estructive lesion is seen. JOINTS: The elbow is normally aligned. No joint effusion is seen. SOFT TISSUE: Normal. IMPRESSION: Stable alignment of the radial head fracture. DATA REPOSITORY: RADIATION DOSE DELIVERED:
== END 2022-09-20 15:02 | disposition home or self-care (01) ==
LOC: DIORS 15:01
PROVIDERS: PCP Nurse Practitioner Family; Referring Provider Nurse Practitioner Family; Visit Provider Student in an Organized Health Care Education/Training Program
DX: S52.122D Displaced fracture of head of left radius, subsequent encounter for closed fracture with routine healing (principal); X58.XXXD Exposure to other specified factors, subsequent encounter
CPT/HCPCS: 73070

== ENCOUNTER 2023-01-09 02:56 | Outpatient (CLI) | payer BC, SELFPAY ==
[2023-01-09 13:04] LABS: Anion Gap 5.4 mmol/L (3-11); BUN 19 mg/dL (7-18); CO2 32.6 mmol/L (21.0-32.0); Calcium 8.9 mg/dL (8.5-10.1); Chloride 101 mmol/L (98-107); FREE T4 1.06 ng/dL (0.76-1.46); Glucose 120 mg/dL (74-106); Potassium 4.3 mmol/L (3.5-5.1); Sodium 139 mmol/L (136-145); TSH 0.33 uIU/mL (0.36-3.74)
== END 2023-01-09 02:57 | disposition home or self-care (01) ==
LOC: LOS 02:56
PROVIDERS: PCP Nurse Practitioner Family; Visit Provider Nurse Practitioner Family
DX: E03.9 Hypothyroidism, unspecified (principal); I10 Essential (primary) hypertension
CPT/HCPCS: 36415; 80048; 84439; 84443

== ENCOUNTER 2023-04-06 03:05 | Outpatient (CLI) | payer BC, SELFPAY ==
[2023-04-06 08:11] LABS: TSH (W/Ref FT4) 2.82 uIU/mL (0.36-3.74)
== END 2023-04-06 03:06 | disposition home or self-care (01) ==
PROVIDERS: PCP Nurse Practitioner Family; Visit Provider Nurse Practitioner Family
DX: Z85.850 Personal history of malignant neoplasm of thyroid (principal); E03.9 Hypothyroidism, unspecified
CPT/HCPCS: 36415; 84443

== ENCOUNTER → 2023-09-29 00:34 | Outpatient (CLI) | payer BC, SELFPAY ==
--- NOTE | 2023-09-29 07:00 | DI.MAMMO_ITS ---
Exam(s) MAMMO SCREENING EXAM: MAMMO SCREENING CLINICAL HISTORY: screening,z12.39. TECHNIQUE: Bilateral full field digital CC and MLO mammographic images were obtained with 3D tomosyn thesis and utilizing computer aided detection (CAD). COMPARISON: Prior mammograms were reviewed. FINDINGS: There are small asymmetric densities noted in both breasts on the MLO views, approximately 10 cm in f rom the nipple on the right side and 8 cm in from the nipple on the left side. Spot compression view s and ultrasound recommended. There are no malignant-appearing microcalcification groups in these re gions. Benign-appearing micro and macro calcifications are again noted bilaterally. There is no significant architectural distortion nor skin thickening-retraction. IMPRESSION: Bilateral asymmetric densities-possible nodules. Spot compression bilateral MLO views and bilateral breast ultrasound recommended. BI-RADS Category 0 - Assessment Incomplete: Need additional imaging evaluation Breast Density - Category B - Scattered areas of fibroglandular density Breast density Category C or D implies that the patient has dense breast tissue. Dense breast tissue can make it harder to find cancer on a mammogram. Dense breast tissue is also associated with an incr eased risk of breast cancer. This information about the result of the mammogram report was provided to the patient to raise their awareness. Use this report when you speak with the patient about their risks for breast cancer, which includes their family history. At that time, you may recommend additional screening tests (Ultrasoun d or MRI) as these tests may add significant information. A negative radiographic report should not delay biopsy if a dominant or clinically suspicious mass is present. Up to ten percent of cancers are not identified on mammography. A negative report may reinforce clinical impression. Adenosis and dense breasts may obscure an underlying neoplasm. False positive reports average 6 to 10%. Patient will receive a letter notifying them of these results.
== END ==
PROVIDERS: PCP Nurse Practitioner Family; Visit Provider Nurse Practitioner Family
DX: Z12.31 Encounter for screening mammogram for malignant neoplasm of breast (principal)
CPT/HCPCS: 77063; 77067

== ENCOUNTER → 2023-10-06 00:12 | Outpatient (CLI) | payer BC, SELFPAY ==
--- NOTE | 2023-10-06 09:14 | DI.MAMMO_ITS ---
Exam(s) MAMMO SCREEN CALL BACK BI EXAM: MAMMO SCREEN CALL BACK BI CLINICAL HISTORY: ASYMMETRIC DENSITIES BILAT BREAST R92.8 ABNL MAMMO. TECHNIQUE: Craniocaudal and mediolateral oblique Full Field Digital Mammography views of the bilater al breast with Computer Aided Diagnosis. COMPARISON: Comparison is made with prior examinations. FINDINGS: Mammography/Tomosynthesis: Masses/Architectural Distortion: None seen. The areas could of concern did not persist on the additio nal images. Microcalcifictions: No suspicious pleomorphic-type are seen. Skin Thickening/Nipple Retraction: None. IMPRESSION: 1. No evidence of malignancy is noted. 2. Unless there is more urgent need, follow-up screening mammography is recommended, as per [employer] guidelines. 3. The findings were discussed with the patient on the date of the examination. BI-RADS Category 1 - Negative Breast Density - Category B - Scattered areas of fibroglandular density Breast density Category C or D implies that the patient has dense breast tissue. Dense breast tissue can make it harder to find cancer on a mammogram. Dense breast tissue is also associated with an incr eased risk of breast cancer. This information about the result of the mammogram report was provided to the patient to raise their awareness. Use this report when you speak with the patient about their risks for breast cancer, which includes their family history. At that time, you may recommend additional screening tests (Ultrasoun d or MRI) as these tests may add significant information. A negative radiographic report should not delay biopsy if a dominant or clinically suspicious mass is present. Up to ten percent of cancers are not identified on mammography. A negative report may reinforce clinical impression. Adenosis and dense breasts may obscure an underlying neoplasm. False positive reports average 6 to 10%. Patient will receive a letter notifying them of these results.
== END ==
PROVIDERS: PCP Nurse Practitioner Family; Visit Provider Nurse Practitioner Family
DX: Z12.31 Encounter for screening mammogram for malignant neoplasm of breast (principal); R92.8 Other abnormal and inconclusive findings on diagnostic imaging of breast
CPT/HCPCS: 77063; 77067

== ENCOUNTER 2024-04-12 00:55 | Outpatient (CLI) | payer BC, SELFPAY ==
[2024-04-12 08:16] LABS: Anion Gap 8.7 mmol/L (3-11); BUN 15 mg/dL (7-18); CO2 31.3 mmol/L (21.0-32.0); CREATININE 0.9 mg/dL (0.55-1.02); Calcium 7.7 mg/dL (8.5-10.1); Calculated LDL 131 mg/dL (<100); Chloride 102 mmol/L (98-107); Cholesterol 252 mg/dL (<200); Estimated GFR 73.19 (mL/min/1.73m2); Glucose 100 mg/dL (74-106); HDL Cholesterol 93 mg/dL (40-60); Potassium 3.2 mmol/L (3.5-5.1); Sodium 142 mmol/L (136-145); TSH (W/Ref FT4) 6.59 uIU/mL (0.36-3.74); Triglyceride 144 mg/dL (<150)
[2024-04-12 08:25] LABS: Hemoglobin A1C 5.1 % (<5.7)
[2024-04-12 08:33] LABS: FREE T4 0.94 ng/dL (0.76-1.46)
[2024-04-12 10:19] LABS: Lab Add On Test DONE
[2024-04-12 10:39] LABS: PHOSPHORUS 4.8 mg/dL (2.6-4.7)
[2024-04-12 11:20] LABS: Vitamin D 25 Total 68.7 ng/mL (30-100)
[2024-04-12 18:26] LABS: Parathyroid Hormone,Intact 36 pg/mL (19-88)
[2024-04-12 20:24] LABS: HBs Antibody, Quant 20.1 mIU/mL (See Note); Hepatitis B Surface Ab Positive (See Note)
[2024-04-12 21:15] LABS: HIV-1/2 Ag & Ab Screen Negative (Negative)
[2024-04-12 21:19] LABS: Hepatitis C Ab w Rflx HCV PCR Negative (Negative)
== END 2024-04-12 00:56 | disposition home or self-care (01) ==
PROVIDERS: PCP Nurse Practitioner Family; Visit Provider Nurse Practitioner Family
DX: Z00.00 Encounter for general adult medical examination without abnormal findings (principal); E83.51 Hypocalcemia
CPT/HCPCS: 36415; 80048; 80061; 82306; 86706; 86803; 87389; 83036; 83735; 83970; 84100; 84439; 84443

== ENCOUNTER 2024-05-31 01:28 | Outpatient (CLI) | payer BC, SELFPAY ==
[2024-05-31 14:07] LABS: TSH (W/Ref FT4) 0.25 uIU/mL (0.36-3.74)
[2024-05-31 14:33] LABS: FREE T4 1.27 ng/dL (0.76-1.46)
== END 2024-05-31 01:29 | disposition home or self-care (01) ==
LOC: LBO 01:28
PROVIDERS: PCP Nurse Practitioner Family; Visit Provider Nurse Practitioner Family
DX: E83.51 Hypocalcemia (principal)
CPT/HCPCS: 36415; 84439; 84443

== ENCOUNTER 2024-09-22 13:47 | Emergency (ER) | payer BC, SELFPAY ==
[2024-09-22 13:52] VITALS: BP 155/99; PULSE 90; RESP 16; TEMP 38.2; O2SAT 94
--- NOTE | 2024-09-22 14:00 | DI.RAD_ITS ---
Exam(s) XR CHEST 2V PA LATERAL EXAM: XR CHEST 2V PA LATERAL CLINICAL HISTORY: Cough, Fever, URI TECHNIQUE: 2D digital imaging was performed of the chest. Two images were obtained. PA and lateral views were obtained. COMPARISON: No exams were available for comparison FINDINGS: MEDIASTINUM: Normal. HEART: Normal. PULMONARY VASCULATURE: Normal. LUNGS: Clear. PLEURAL SPACE: No pleural effusion or pneumothorax. BONE:Within normal limits for the patient's age. Anterior cervical disc fusion is seen in the lower cervical spine. OTHER FINDINGS:Normal. IMPRESSION: No acute pulmonary findings. DATA REPOSITORY: RADIATION DOSE DELIVERED:
--- NOTE | 2024-09-22 14:13 | ED.GENADUL_ITS ---
Discharge Plan Disposition Patient Disposition: Home Condition: Stable Discharge Details Clinical Impression: Otitis media, URI (upper respiratory infection) Primary Care Provider: Radha Salazar ED Provider: Lashonda Acosta Home Meds and New Rx's Prescriptions: New amoxicillin-pot clavulanate 875-125 mg tablet 1 tab PO BID 10 Days Qty: 20 0RF Continued calcium carbonate [Calcium 600] 600 mg calcium (1,500 mg) tablet 600 mg PO DAILY cholecalciferol (vitamin D3) [Vitamin D3] 2,000 UNIT tablet 1,000 unit PO DAILY cyanocobalamin (vitamin B-12) [Vitamin B-12] 1,000 MCG tablet 1 tab PO DAILY Qty: 100 Rx Instructions: DOSE UNREPORTED. hydrochlorothiazide 25 mg tablet 25 mg PO QAM Qty: 90 3RF bupropion HCl [Wellbutrin XL] 300 mg tablet extended release 24 hr 300 mg PO QAM Qty: 90 3RF losartan 50 mg tablet 50 mg PO DAILY Qty: 90 3RF levothyroxine 100 mcg tablet 100 mcg PO DAILY Qty: 90 0RF Rx Instructions: Take 1 pill daily in addition to the 88mcg pill No Action melatonin 5 mg capsule 5 mg PO PRN PRN ofloxacin 0.3 % drops 10 drp otic (ear) DAILY 7 Days Qty: 10 0RF multivitamin 1 EACH tablet 1 ea PO DAILY iron 18 MG tablet 1 tab PO DAILY Rx Instructions: DOSE UNREPORTED. potassium chloride 20 mEq tablet extended release 20 meq PO DAILY Qty: 90 3RF levothyroxine 88 mcg tablet 88 mcg PO DAILY Qty: 90 0RF Rx Instructions: Take 1 pill daily in addition to the 100mcg pill Discharge Instructions Instructions: Upper Respiratory Infection ED, Ear Infection ED Additional Instructions: Please take the antibiotic twice daily for the next 10 days with a probiotic or yogurt as directed. Chest x-ray was within normal limits however with the length of your symptoms and your ear infection I will give you an antibiotic this will treat both. Please take Tylenol or Ibuprofen with food every 4-6 hours as needed for pain and swelling. Increase oral fluids. Follow up with primary care provider in 3-5 days. Return to ED sooner if any worsening or concerns. At this time your COVID and flu swab is pending we will call you if it is positive. Referrals: Radha Salazar, LORRIE [Primary Care Provider] - 1 week HPI General Mode of arrival: ambulatory . Date/Time Provider Initiated Documentation: 09/22/24 13:56 . Limitations to Documentation: no limitations . Information obtained by: patient, RN notes reviewed and old records reviewed . HPI Narrative: 57-year-old female presents to the ER with chief complaint of 11 days of URI type symptoms. Patient reports began with a sore throat and ear fullness was seen at her PCPs office was given eardrops approximately 1 week ago she reports since then her ears have become full she has decreased hearing out of them, she now reports cough. She also states that her mother is recently diagnosed with pneumonia and has been placed on antibiotics and is feeling much better. She is vaccinated for flu and COVID. She does present with fever of 38.2. Past medical history includes thyroidectomy, obesity, hypertension thyroid cancer. Related Data Home Medications ?Medication ?Instructions ?Recorded ?Confirmed cholecalciferol (vitamin D3) 50 1,000 unit PO DAILY 04/29/13 09/22/24 mcg (2,000 unit) tablet (Vitamin D3) iron 18 mg tablet 1 tab PO DAILY 04/29/13 09/22/24 multivitamin 1 ea PO DAILY 04/29/13 09/22/24 cyanocobalamin (vitamin B-12) 1 tab PO DAILY #100 tabs 12/11/13 09/22/24 1,000 mcg tablet (Vitamin B-12) melatonin 5 mg capsule 5 mg PO PRN PRN 12/31/18 09/22/24 calcium carbonate (Calcium 600) 600 mg PO DAILY 09/20/22 09/22/24 hydrochlorothiazide 25 mg tablet 25 mg PO QAM #90 tabs 01/17/24 09/22/24 bupropion HCl 300 mg 24 hr tablet, 300 mg PO QAM #90 tabs 04/15/24 09/22/24 extended release (Wellbutrin XL) losartan 50 mg tablet 50 mg PO DAILY #90 tabs 04/15/24 09/22/24 potassium chloride 20 mEq 20 meq PO DAILY #90 tabs 05/06/24 09/22/24 tablet,extended release levothyroxine 100 mcg tablet 100 mcg PO DAILY #90 tabs 08/23/24 09/22/24 levothyroxine 88 mcg tablet 88 mcg PO DAILY #90 tabs 08/23/24 09/22/24 ofloxacin 0.3 % ear drops 10 drp otic (ear) DAILY 7 days #10 09/18/24 09/22/24 mL amoxicillin 875 mg-potassium 1 tab PO BID 10 days #20 tabs 09/22/24 clavulanate 125 mg tablet Previous Rx's ?Medication ?Instructions ?Recorded hydrochlorothiazide 25 mg tablet 25 mg PO QAM #90 tabs 01/17/24 bupropion HCl 300 mg 24 hr tablet, 300 mg PO QAM #90 tabs 04/15/24 extended release (Wellbutrin XL) losartan 50 mg tablet 50 mg PO DAILY #90 tabs 04/15/24 potassium chloride 20 mEq 20 meq PO DAILY #90 tabs 05/06/24 tablet,extended release levothyroxine 100 mcg tablet 100 mcg PO DAILY #90 tabs 08/23/24 levothyroxine 88 mcg tablet 88 mcg PO DAILY #90 tabs 08/23/24 ofloxacin 0.3 % ear drops 10 drp otic (ear) DAILY 7 days #10 09/18/24 mL amoxicillin 875 mg-potassium 1 tab PO BID 10 days #20 tabs 09/22/24 clavulanate 125 mg tablet Allergies Allergy/AdvReac Type Severity Reaction Status Date / Time oxycodone Allergy Mild SKIN RASH Verified 09/22/24 13:55 sertraline AdvReac Intermediate Jittery Verified 09/22/24 13:55 General Stated Complaint: RespSymp BRIAN: 3 Review of Systems All systems reviewed & are unremarkable except as noted in HPI and below Constitutional Constitutional: Reports as per HPI, Reports body ache(s) and Reports fever(s) ENT Ears, Nose, Mouth, and Throat: Reports as per HPI, Reports hearing loss and Reports sore throat Respiratory Respiratory: Reports chest congestion and Reports cough Exam Narrative Exam Narrative: Constitutional: Alert and oriented x3. Appears stated age. Obese body habitus. Head: Normocephalic, no trauma. Eyes: Pupils PERRL, Red reflex noted, EOM's intact. Eyelids symmetrical without lesions, discharge, or swelling. ENT: Bilateral TMs show effusion, some surrounding erythema external ear normal to inspection, no mastoid TTP, swelling, or erythema, Nasal turbinates WNL, no nasal discharge. Normal dentition, Posterior pharynx WNL, no exudate. Chest: RRR, Normal S1, S2, distal pulses intact. Resp: Crackles noted to left lower lobe, Abdomen: Soft, non-distended, Normoactive bowel sounds all 4 quads. Musculoskeletal: Normal gait, Moves all 4 extremities without difficulty. Skin: No suspicious rashes or lesions. Capillary refill less than 2 sec. Neurologic: Cranial nerves II-XII intact. Alert and oriented x 3. Motor: No deficits noted. Sensory: Intact bilaterally all 4 extremities. Hematologic/Lymphatic: No ecchymosis, no lymphadenopathy. Course Vital Signs Vital signs: Vital Signs Temperature 38.2 C H 09/22/24 13:52 Pulse 90 09/22/24 13:52 Respiratory Rate 16 09/22/24 13:52 Blood Pressure 155/99 H 09/22/24 13:52 Pulse Oximetry 94 09/22/24 13:52 Temperature 38.2 C H 09/22/24 13:52 Temperature Source Oral 09/22/24 13:52 Pulse 90 09/22/24 13:52 Respiratory Rate 16 09/22/24 13:52 Respiratory Effort Normal 09/22/24 13:55 Blood Pressure 155/99 H 09/22/24 13:52 Blood Pressure Position Sitting 09/22/24 13:52 Pulse Oximetry 94 09/22/24 13:52 Oxygen Delivery Method Room Air 09/22/24 13:52 Oxygen Flow Rate 0 09/22/24 13:52 Pain Level 0 09/22/24 13:52 Medical Decision Making 57-year-old female presents to the ER with chief complaint of 11 days of URI type symptoms. Patient reports began with a sore throat and ear fullness was seen at her PCPs office was given eardrops approximately 1 week ago she reports since then her ears have become full she has decreased hearing out of them, she now reports cough. She also states that her mother is recently diagnosed with pneumonia and has been placed on antibiotics and is feeling much better. She is vaccinated for flu and COVID. She does present with fever of 38.2. Past medical history includes thyroidectomy, obesity, hypertension thyroid cancer. Chest x-ray ordered, Tylenol and rapid flu COVID swab. Chest x-ray is within normal limits however with patient's symptoms and length of illness will give Augmentin. And concern for otitis media and URI, COVID and flu swab is pending at this time however I will call patient if it is positive. This text was generated using [employer] dictation system, please disregard any oddities of phrase or misspellings. 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) Obesity (Chronic) Hypocalcemia (Acute) Medical History Tubular adenoma of colon On 2016 colonoscopy 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 Thyroid goiter Surgical History History of colonoscopy with polypectomy (09/14/21) H/O total thyroidectomy (06/18/12) Status post total left knee replacement (11/21/19) Status post total right knee replacement (02/14/17) Hx of bone marrow donation S/P cervical discectomy 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 Daughter No problems noted. Maternal Grandfather Brain tumor Maternal Grandmother Hyperlipidemia Hypertension Heart disease Stroke Paternal Grandfather Colon cancer Heart disease Paternal Grandmother Diabetes Hypertension Social History Smoking/Tobacco Use Status: Former Tobacco Use tobacco type: cigarettes Quit Date: 11/13/91 Tobacco: How many years used: 15 Second Hand Exposure: Yes Smoking risk assessment performed?: Yes Alcohol Intake: current Alcohol Intake frequency: a few times a week Alcohol type: wine Drug use: Never Substance use type: does not use Adopted: No Caregiver/Support person: No Household members: spouse Housing: house Number of Children: 2 Communication Needs: None Education Level: college Do you need help understanding health information?: Never Pets and animals: Yes Pets and animals: cat(s) and dog(s) Sexually active: Yes Do you think of yourself as: straight/heterosexual Current gender identity: female What is your relationship status?: How often do you talk on the phone with friends or family?: twice per week How often do you get together with friends or relatives?: once per week How often do you attend gnosticism or nondenominational services?: 4 or more times per year Do you belong to any clubs or organized social groups?: yes Panel score (0-1 are the most socially isolated patients): 4 What type of physical activity do you participate in: walking Duration: 15-30 minutes/day Frequency: 1-2 times per week Jillian/Orthodox: Alevism Special jillian needs: No Seatbelt use: always Helmet use: Yes Drive intox or ride w/intox driver education instructor: No Working smoke detector in home: Yes Carbon monox detector in home: Yes Firearms in home: Yes Firearms unloaded and locked: Yes Do you feel safe at home: Yes Do you feel safe in your relationship?: Yes Victim of physical abuse: No Victim of emotional abuse: No Victim of sexual abuse: No Would you like helpful sources: No Female Reproductive History Menstrual Menopause type: natural History History 3 Para 2 Hx # Term Pregnancies Multiple births Hx # Pregnancies Ectopic pregnancies AB induced Hx Number of Living Children 2 AB spontaneous 1
[2024-09-22] MEDS: Acetaminophen 325 MG TAB 650 MG PO (14:24)
[2024-09-22] MEDS: Amox. 875/Clav. 125, 2 TABS/BTL 1 TAB PO (15:40)
[2024-09-22] MEDS: Amoxicillin 875/Clav. 125 TAB PO (15:41)
[2024-09-22 15:46] VITALS: BP 147/84; PULSE 83; RESP 16; TEMP 38.1; O2SAT 97
[2024-09-22 16:40] LABS: COVID-19 PCR Negative (Negative); Influenza A PCR Negative (Negative); Influenza B PCR Negative (Negative); RSV PCR Negative (Negative)
[2024-09-22 16:42] LABS: Source NASOPHARYNX
== END 2024-09-22 15:48 | disposition home or self-care (01) ==
LOC: ER 15:47
PROVIDERS: Emergency Provider Registered Nurse Emergency; PCP Nurse Practitioner Family
DX: R50.9 Fever, unspecified (principal); H66.90 Otitis media, unspecified, unspecified ear; J06.9 Acute upper respiratory infection, unspecified; I10 Essential (primary) hypertension; E78.5 Hyperlipidemia, unspecified; Z98.84 Bariatric surgery status; Z87.891 Personal history of nicotine dependence
CPT/HCPCS: 87637; 99284; 71046; 99283

== ENCOUNTER 2024-11-12 02:17 | Outpatient (CLI) | payer BC, SELFPAY ==
[2024-11-12 15:46] LABS: ALT 21 U/L (14-59); AST 25 U/L (15-37); Albumin 3.5 g/dL (3.4-5.0); Alkaline Phosphatase 110 U/L (46-116); Anion Gap 7.7 mmol/L (3-11); BUN 12 mg/dL (7-18); Bilirubin, Total 0.53 mg/dL (0.2-1.0); CO2 31.3 mmol/L (21.0-32.0); Calcium 8.7 mg/dL (8.5-10.1); Chloride 101 mmol/L (98-107); Estimated GFR 64.49 (mL/min/1.73m2); Glucose 91 mg/dL (74-106); PHOSPHORUS 4.5 mg/dL (2.6-4.7); Potassium 3.9 mmol/L (3.5-5.1); Sodium 140 mmol/L (136-145); TSH (W/Ref FT4) 1.37 uIU/mL (0.36-3.74); Total Protein 7.3 g/dL (6.4-8.2)
== END 2024-11-12 02:18 | disposition home or self-care (01) ==
PROVIDERS: PCP Nurse Practitioner Family; Visit Provider Nurse Practitioner Family
DX: E83.51 Hypocalcemia (principal); Z85.850 Personal history of malignant neoplasm of thyroid
CPT/HCPCS: 36415; 80053; 83970; 84100; 84443

== ENCOUNTER 2025-01-30 01:15 | Outpatient (CLI) | payer BC, SELFPAY ==
--- NOTE | 2025-01-30 08:00 | DI.DEXA_ITS ---
Exam(s) XR DEXA BONE DENSITY W/WO MARCELINA EXAM: XR DEXA BONE DENSITY W/WO MARCELINA CLINICAL HISTORY: osteoporosis screening in postmenopausal status,z78.0 TECHNIQUE: COMPARISON: No exams were available for comparison FINDINGS: Lateral Spine Image: Unremarkable. No compression deformities identified. Left hip: Total T-Score: 1.5 Total Z-Score: 2.5 T- and Z-scores: Within normal limits. Lumbar Spine: Total T-Score: 2.0 Total Z-Score: 3.5 T- and Z-scores: Within normal limits. IMPRESSION: No evidence of osteoporosis.
--- NOTE | 2025-01-30 08:05 | DI.MAMMO_ITS ---
Exam(s) MAMMO SCREENING EXAM: MAMMO SCREENING CLINICAL HISTORY: screening,z12.39 TECHNIQUE: Mammograms were interpreted according to the usual protocol including computer analysis w [employer] CAD system, tomosynthesis and C-view imaging. COMPARISON: 2014 through 2022 FINDINGS: The breasts are composed of scattered fibroglandular densities, Breast Density category B. No suspicious masses or suspicious microcalcifications are seen. No skin thickening or abnormal axillary lymph nodes are seen. There has been no significant change from prior exams. IMPRESSION: BI-RADS Category 1, Negative mammogram Yearly screening mammography is recommended. Breast Density - Category B, scattered fibroglandular densities. A negative radiographic report should not delay biopsy if a dominant or clinically suspicious mass is present. Up to ten percent of cancers are not identified on mammography. A negative report may reinforce clinical impression. Adenosis and dense breasts may obscure an underlying neoplasm. False positive reports average 6 to 10%. Patient will receive a letter notifying them of these results.
== END 2025-01-30 01:35 ==
LOC: DI 01:16
PROVIDERS: PCP Nurse Practitioner Family; Visit Provider Nurse Practitioner Family
DX: Z78.0 Asymptomatic menopausal state (principal); Z98.84 Bariatric surgery status; Z13.820 Encounter for screening for osteoporosis
CPT/HCPCS: 77063; 77067; 77080

== ENCOUNTER 2025-05-08 18:56 | Outpatient (REF) | payer BC, SELFPAY | END 2025-05-08 18:57 | disposition home or self-care (01) | LOC: LBN 18:56 | PROVIDERS: PCP Nurse Practitioner Family; Visit Provider Nurse Practitioner Family | DX: K63.5 Polyp of colon (principal) | CPT/HCPCS: 87070; 87205 ==

== ENCOUNTER 2025-10-29 15:20 | Outpatient (CLI) | payer OTHER, SELFPAY ==
--- NOTE | 2025-10-29 13:15 | DI.RAD_ITS ---
Exam(s) XR SHOULDER RT COMPLETE 2+V EXAM: XR SHOULDER RT COMPLETE 2+V INDICATION: F/U FRACTURE. COMPARISON: CR XR SHOULDER RIGHT from 09/15/[address] UPPER EXTREMITY RT WO from 09/22/2025 TECHNIQUE: 2D digital imaging was performed. Two views. FINDINGS: The alignment of the humeral head fracture is unchanged. The glenohumeral alignment is also unchanged. DATA REPOSITORY: RADIATION DOSE DELIVERED:
== END 2025-10-29 15:21 | disposition home or self-care (01) ==
LOC: DIORS 15:21
PROVIDERS: PCP Nurse Practitioner Family; Visit Provider Student in an Organized Health Care Education/Training Program
DX: S42.201A Unspecified fracture of upper end of right humerus, initial encounter for closed fracture (principal)
CPT/HCPCS: 73030